=== PATIENT | female | born 1970 | race Caucasian/White ===

== ENCOUNTER 2020-06-14 17:56 | Inpatient (IN) | payer OTHER, SELFPAY ==
[~2020-06-14] VITALS: Ht 167.6 cm; Wt 85.7 kg
[2020-06-14] MEDS: NACL 0.9% 1,000 ML IV SCH
[2020-06-14 17:58] VITALS: BP 126/97
--- NOTE | 2020-06-14 18:18 | NUR ---
COVID-19 [facility]STA SWAB COLLECTED
--- NOTE | 2020-06-14 18:23 | NUR ---
WHEELCHAIR ASSISTED FROM [facility] C/O SOB, FATIGUE WITH GENERALIZED WEAKNESS X 1 WK----SYMPTOMS WORSENING 2 WORDED SPEECH BEFORE BEING OVERCOME BY COUGHING ---SHALLOW BREATH RAPID---
[2020-06-14] MEDS ORDERED: ACETAMINOPHEN EXTRA STRENGTH 500 MG TAB PO ONE (19:30)
--- NOTE | 2020-06-14 19:30 | NUR ---
RSV, FLU swab collected
[2020-06-14 19:36] LABS: BASOPHILS % (AUTO) 0.3 % (0.0-2.0); HEMATOCRIT 40.6 % (36-48); HEMOGLOBIN 13.9 g/dL (12.0-16.0); LYMPHOCYTES # (AUTO) 0.8 K/uL (2.5-16.5); LYMPHOCYTES % (AUTO) 15.6 % (20.5-51.1); MEAN CORPUSCULAR HEMOGLOBIN 32 pg (27-31); MEAN CORPUSCULAR HGB CONC 34 g/dL (33-37); MEAN CORPUSCULAR VOLUME 94.6 fL (80-94); MONOCYTES # (AUTO) 0.4 K/uL (0.8-1.0); MONOCYTES % (AUTO) 7.7 % (1.7-9.3); NEUTROPHILS # (AUTO) 4.1 K/uL (1.8-7.7); NEUTROPHILS % (AUTO) 76.4 % (42.2-75.2); PLATELET COUNT (AUTO) 123 K/uL (140-450); RED BLOOD CELL COUNT(AUTO) 4.29 MIL/uL (4.20-5.40); RED CELL DISTRIBUTION WIDTH 12.4 % (11.6-13.7); WHITE BLOOD COUNT (AUTO) 5.4 K/uL (4.8-10.8)
[2020-06-14 19:52] LABS: ALBUMIN 3.4 g/dL (3.4-5.0); ANION GAP 19.7 (8-16); CARBON DIOXIDE 19.6 mmol/L (21-32); CREATININE 0.8 mg/dL (0.6-1.3); POTASSIUM 4.3 mmol/L (3.5-5.1); TOTAL BILIRUBIN 0.6 mg/dL (0.0-1.0)
[2020-06-14 19:54] LABS: LACTATE DEHYDROGENASE 273 U/L (81-234)
[2020-06-14 19:59] LABS: PROTHROMBIN TIME 10.1 secs (10.8-13.4)
[2020-06-14 20:01] LABS: C-REACTIVE PROTEIN QUANT 13.4 mg/dL (0.0-0.9)
--- NOTE | 2020-06-14 20:06 | NUR ---
states unable to provide urine at the moment.
[2020-06-14 20:21] LABS: RSV NEGATIVE (NEGATIVE)
[2020-06-14] MEDS ORDERED: AZITHROMYCIN 500 MG in DEXTROSE 5% 250 ML IV ONE (21:15)
[2020-06-14] MEDS ORDERED: ACETAMINOPHEN 325 MG TAB PO PRN (21:30)
[2020-06-14] MEDS ORDERED: HYDROcodone/APAP 5/325 MG 1 TAB TAB PO PRN (21:30)
[2020-06-14] MEDS ORDERED: ONDANSETRON 4 MG/2 ML VIAL IVP PRN (21:30)
[2020-06-14] MEDS ORDERED: MORPHINE SULFATE 4 MG/ML SYR IVP PRN (21:30)
[2020-06-14] MEDS ORDERED: DEXTROSE 50% 50 ML SYR IVP PRN (21:40)
[2020-06-14] MEDS ORDERED: cefTRIAXone 1,000 MG VIAL ONE (21:46)
[2020-06-14] MEDS ORDERED: AZITHROMYCIN 500 MG INJ VIAL IV ONE (21:46)
[2020-06-14 23:08] LABS: APPEARANCE,URINE CLEAR (CLEAR); BILIRUBIN,URINE NEGATIVE (NEGATIVE); BLOOD, URINE NEGATIVE (NEGATIVE); COLOR,URINE YELLOW (YELLOW); LEUKOCYTE ESTERASE ,URINE NEGATIVE (NEGATIVE); NITRITE, URINE NEGATIVE (NEGATIVE); UGLUCOSE 3+ (NEGATIVE)
[2020-06-14 23:36] LABS: RBC,URINE 0-5 /HPF (0-5); WBC,URINE 0-5 /HPF (0-5)
[2020-06-14 23:40] VITALS: BP 120/78
--- NOTE | 2020-06-14 23:40 | NUR ---
RECEIVED PT AAOX4 , FROM ER / [facility]INE , WEAK LOOKING - WALK TO BED W/ ASSIST , W/ MILD SHORTNESS OF BREATH PT. DESCRIBING TO ME , SHE SAID HER SOB AGGRAVATES BY COUGH AND BY MOVING - ENCOURAGE THE PT TO BEDREST TO CONSERVE O2 AND ENERGY - WILL PROVIDE BEDSIDE COMMODE . IV SITE INTACT AND PATENT , ON TELE MONITOR - SR . O2 SAT 100 % . ADMISSION ASSESSMENT - DONE . MRSA SPECIMEN SENT TO LAB . SAFETY MEASURES IN PLACE - CALL LIGHT WITHIN REACH - REMINDS PT TO USE THE CALL LIGHT WHEN SHE NEEDED HELP . PLAN OF CARE DISCUSSED AND VERBALIZE UNDERSTANDING . WILL CONT. TO MONITOR . COVID 19 + - FULL CODE .
--- NOTE | 2020-06-14 23:45 | NUR ---
Patient will be admitted to care of . Admited to telemetry. Will go to room 113.. Belongings list completed. Report to Heidi GUERRA.
--- NOTE | 2020-06-15 02:00 | NUR ---
MADE ROUNDS , NO S/SX OF ACUTE DISTRESS NOTED AT THIS TIME , O2 SAT WNL . ON TELE MONITOR . CALL LIGHT WITHIN REACH .
--- NOTE | 2020-06-15 03:00 | NUR ---
VOIDED FREELY / THRU IMPROVISED COMMODE - U.O 800 CC . - CLEAR . Addendum: 06/15/20 at 0345 by Heidi Carpenter RN VOIDED FREELY TRHU IMPROVISED BEDSIDE COMMODE .
[2020-06-15 04:00] VITALS: BP 111/62
[2020-06-15 05:11] LABS: BASOPHILS % (AUTO) 0.5 % (0.0-2.0); EOSINOPHILS % (AUTO) 0.3 % (0.0-4.0); HEMATOCRIT 37.3 % (36-48); HEMOGLOBIN 12.6 g/dL (12.0-16.0); LYMPHOCYTES % (AUTO) 18.9 % (20.5-51.1); MEAN CORPUSCULAR HEMOGLOBIN 32 pg (27-31); MEAN CORPUSCULAR HGB CONC 34 g/dL (33-37); MEAN CORPUSCULAR VOLUME 96.1 fL (80-94); MONOCYTES # (AUTO) 0.5 K/uL (0.8-1.0); MONOCYTES % (AUTO) 8.9 % (1.7-9.3); NEUTROPHILS # (AUTO) 3.7 K/uL (1.8-7.7); NEUTROPHILS % (AUTO) 71.4 % (42.2-75.2); PLATELET COUNT (AUTO) 112 K/uL (140-450); RED BLOOD CELL COUNT(AUTO) 3.89 MIL/uL (4.20-5.40); RED CELL DISTRIBUTION WIDTH 12.5 % (11.6-13.7); WHITE BLOOD COUNT (AUTO) 5.2 K/uL (4.8-10.8)
[2020-06-15 05:57] LABS: ALBUMIN 2.7 g/dL (3.4-5.0); ANION GAP 14.1 (8-16); CARBON DIOXIDE 24.5 mmol/L (21-32); CREATININE 0.8 mg/dL (0.6-1.3); MAGNESIUM 1.9 mg/dL (1.8-2.4); POTASSIUM 4.6 mmol/L (3.5-5.1); TOTAL BILIRUBIN 0.3 mg/dL (0.0-1.0)
[2020-06-15] MEDS: BLOOD GLUCOSE MONITORING 1 DEV DEV FS SCH ×4 (06:17→21:09)
[2020-06-15] MEDS: INSULIN LISPRO SLIDING SCALE 100 UNITS/ML VIAL SUBQ PRN ×4 (06:17→21:11)
--- NOTE | 2020-06-15 07:15 | NUR ---
RECEIVED ENDORSEMENT FROM RHINOLOGIST NURSE, AWAKE. ALERT ORIENTEDX4, BREATHING SPONTANEOUSLY WITH O2 AT 4L/MIN VIA NC SATURATING AT 95%, NOT IN DISTRESS NOTED. WITH ONGOING IV FLUID 0.9% NS AT 80ML/H INFUSING WELL AT RT HAND G22 IV CANNULA NOTED.SAFETY MEASURES IN PLACE AND CONTINUE MONITOR.
--- NOTE | 2020-06-15 07:15 | NUR ---
ENDORSED - PT - STABLE .
[2020-06-15 08:00] VITALS: BP 134/71
[2020-06-15] MEDS: DEXAMETHASONE 4 MG/ML VIAL IVP SCH (08:26)
--- NOTE | 2020-06-15 08:33 | NUR ---
FULLY AWAKE, MILD SHORTNESS OF BREATHE NOTED,PLACE ON UPRIGHT POSITION, VERBALIZED COMFORTABLE.DUE MEDICATION GIVEN.
--- NOTE | 2020-06-15 09:28 | NUR ---
PATIENT HAS BEEN SCREENED AND CATEGORIZED MODERATE NUTRITION RISK. PATIENT WILL BE SEEN WITHIN 3-5 DAYS OF ADMISSION. 06/17/20 06/19/[address]
[2020-06-15] MEDS ORDERED: ALBUTEROL HFA MDI 90 MCG/ACTUATION 8 GM INH PRN (09:45)
[2020-06-15] MEDS ORDERED: LOVENOX 1MG/KG Q12H SUBQ SCH (09:45)
[2020-06-15] MEDS ORDERED: ENOXAPARIN 80 MG/0.8 ML SYR SUBQ SCH (10:00)
[2020-06-15] MEDS: NACL 0.9% 1,000 ML IV SCH ×3 (10:35→22:27)
--- NOTE | 2020-06-15 10:43 | NUR ---
FEBRILE- 100.8, TYLENOL 650MG TAB Q4H ORDERED PRN GIVEN.
--- NOTE | 2020-06-15 11:37 | NUR ---
VACUUM FILTER OPERATOR NOTE: KARINA WAS UNABLE TO MEET PATIENT AT BEDSIDE. KARINA CONTACTED PATIENT'S CARLA BOONE [phone]. KARINA WILL ATTEMPT TO CONTACT PATIENT WITH ROOM PHONE. Addendum: 06/15/20 at 1415 by Garcia Strange SS KARINA CONTACTED CHARLIE GONZALEZ REGARDING IF PATIENT'S ROOM PHONE IS WORKING. PER LISA, ROOM PHONE IS WORKING. KARINA CONTACTED ROOM PHONE 3X TO COMPLETE ASSESSMENT. KARINA WILL FOLLOW UP.
[2020-06-15 12:00] VITALS: BP 117/65
--- NOTE | 2020-06-15 12:09 | NUR ---
VITAL SIGNS TAKEN AND RECORDED, STILL MILD TACHYPNEIC NOTED BUT NOT IN DISTRESS. KEPT ON HIGH BACK REST POSITION AND COMFORTABLE TO BED.
--- NOTE | 2020-06-15 14:06 | NUR ---
AWAKE AND ALERT, WATCHING TV, NOT IN DISTRESS NOTED
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
[2020-06-15 16:00] VITALS: BP 145/90
[2020-06-15] MEDS ORDERED: remdesivir COMMUNICATION ORDER 1 EA MISC MC PRN (17:00)
--- NOTE | 2020-06-15 17:06 | NUR ---
DR. FERRELL CALLED AND UPDATED PATIENT STATUS, HE ORDERED FOR 1 UNIT CONVALESCENT PLASMA AND CARRIED OUT.
[2020-06-15] MEDS ORDERED: CLINICAL MONITORING MC PRN (17:15)
[2020-06-15] MEDS ORDERED: REMDESIVIR (EUA) 200 MG in NACL 0.9% 100 ML IV SCH (18:00)
--- NOTE | 2020-06-15 18:33 | NUR ---
CONSENT SIGNED FOR BLOOD TRANSFUSION INTERPRETED BY INTERCOM, VERBALIZED UNDERSTANDING. INITIAL DOSE DOSE OF REMDISEVER GIVEN. SAFETY MEASURES IN PLACE.
--- NOTE | 2020-06-15 19:18 | NUR ---
ENDORSED TO TRIAL MANAGER NURSE FOR CONTINUITY OF CARE IN STABLE CONDITION
--- NOTE | 2020-06-15 19:20 | NUR ---
RECEIVED BEDSIDE SHIFT REPORT FROM DAY SHIFT NURSE. PT AAO4, AMBULATORY, AND ABLE TO MAKE NEEDS KNOWN. PT ON O2 3LPM/NC. PT NOT IN DISTRESS. SKIN IS WARM, DRY, AND INTACT. ABDOMEN IS SOFT AND NON-TENDER. IV ACCESS ON RIGHT HAND G22 PATENT AND INTACT, IVF INFUSING WELL. PT DENIES ANY PAIN OR DISCOMFORT AT THIS TIME. NO REQUESTS MADE. POC DISCUSSED, PT VERBALIZED UNDERSTANDING. SAFETY MEASURES IN PLACE. CALL LIGHT WITHIN REACH. WILL CONTINUE TO MONITOR.
[2020-06-15 20:00] VITALS: BP 118/69
[2020-06-15] MEDS: ZINC SULF 220 MG CAP PO SCH (20:56)
--- NOTE | 2020-06-15 20:58 | NUR ---
VITAL SIGNS STABLE. SCHEDULED MEDS GIVEN ORDERED. BLOOD SUGAR 283. INSULIN COVERAGE GIVEN PER ORDERS. PT NOT IN DISTRESS. O2 IN PLACE. HOB ELEVATED. PT DENIES ANY PAIN OR DISCOMFORT AT THIS TIME. SAFETY MEASURES IN PLACE. CALL LIGHT WITHIN REACH. WILL CONTINUE TO MONITOR.
[2020-06-15] MEDS: ENOXAPARIN 80 MG/0.8 ML SYR SUBQ SCH (21:10)
[2020-06-15] MEDS ORDERED: AZITHROMYCIN 500 MG in DEXTROSE 5% 250 ML IV SCH (22:00)
--- NOTE | 2020-06-15 22:29 | NUR ---
PT IN BED WATCHING TV. NO S/SX OF DISTRESS NOTED. O2 IN PLACE. PT KEPT COMFORTABLE. CALL LIGHT WITHIN REACH. WILL CONTINUE TO MONITOR.
[2020-06-16] VITALS: BP 122/75
--- NOTE | 2020-06-16 00:10 | NUR ---
VITAL SIGNS STABLE. PT NOT IN DISTRESS. O2 IN PLACE. PT DENIES ANY PAIN OR DISCOMFORT. PT KEPT COMFORTABLE. SAFETY MEASURES IN PLACE. CALL LIGHT WITHIN REACH. WILL CONTINUE TO MONITOR.
--- NOTE | 2020-06-16 01:55 | NUR ---
ROUNDS MADE. PT ASLEEP. O2 IN PLACE. VISIBLE CHEST RISE AND FALL NOTED. PT KEPT COMFORTABLE. SAFETY MEASURES IN PLACE. CALL LIGHT WITHIN REACH. WILL CONTINUE TO MONITOR.
[2020-06-16 04:00] VITALS: BP 133/74
--- NOTE | 2020-06-16 04:35 | NUR ---
VITAL SIGNS STABLE. PT IN BED RESTING. O2 IN PLACE. PT NOT IN DISTRESS. O2 SAT 96%. PT DENIES ANY PAIN OR DISCOMFORT. NO REQUESTS MADE. PT KEPT COMFORTABLE. SAFETY MEASURES IN PLACE. CALL LIGHT WITHIN REACH. WILL CONTINUE TO MONITOR.
[2020-06-16] MEDS: BLOOD GLUCOSE MONITORING 1 DEV DEV FS SCH ×4 (06:57→21:10)
[2020-06-16 06:58] LABS: BASOPHILS % (AUTO) 0.1 % (0.0-2.0); HEMATOCRIT 39.2 % (36-48); HEMOGLOBIN 13.3 g/dL (12.0-16.0); LYMPHOCYTES # (AUTO) 0.7 K/uL (2.5-16.5); LYMPHOCYTES % (AUTO) 8.1 % (20.5-51.1); MEAN CORPUSCULAR HEMOGLOBIN 32 pg (27-31); MEAN CORPUSCULAR HGB CONC 34 g/dL (33-37); MEAN CORPUSCULAR VOLUME 95.2 fL (80-94); MONOCYTES # (AUTO) 0.6 K/uL (0.8-1.0); MONOCYTES % (AUTO) 6.3 % (1.7-9.3); NEUTROPHILS # (AUTO) 7.9 K/uL (1.8-7.7); NEUTROPHILS % (AUTO) 85.5 % (42.2-75.2); PLATELET COUNT (AUTO) 153 K/uL (140-450); RED BLOOD CELL COUNT(AUTO) 4.12 MIL/uL (4.20-5.40); RED CELL DISTRIBUTION WIDTH 12.4 % (11.6-13.7); WHITE BLOOD COUNT (AUTO) 9.2 K/uL (4.8-10.8)
[2020-06-16] MEDS: INSULIN LISPRO SLIDING SCALE 100 UNITS/ML VIAL SUBQ PRN ×4 (06:58→21:11)
[2020-06-16 07:03] LABS: ALBUMIN 2.9 g/dL (3.4-5.0); ANION GAP 19.4 (8-16); CARBON DIOXIDE 20.2 mmol/L (21-32); CREATININE 0.8 mg/dL (0.6-1.3); POTASSIUM 4.6 mmol/L (3.5-5.1); TOTAL BILIRUBIN 0.4 mg/dL (0.0-1.0)
--- NOTE | 2020-06-16 07:16 | NUR ---
GAVE BEDSIDE SHIFT REPORT TO DAY SHIFT NURSE. PATIENT IN STABLE CONDITION.
--- NOTE | 2020-06-16 07:18 | NUR ---
RECEIVED REPORT FROM NIGHT NURSE PT IS AAOX4 ON OXYGEN 3L VIA NASAL CANULA ON CCHO 60 MG DIET, IV SITES INTACT AND PATENT ON LEFT HAND G22. LAST BLOOD SUGAR LEVEL AT 206MG/DL. SAFETY MEASURES IN PLACE CALL LIGHT WITHIN REACH. WILL CONTINUE TO MONITOR.
[2020-06-16 08:00] VITALS: BP 123/68
[2020-06-16] MEDS: DEXAMETHASONE 4 MG/ML VIAL IVP SCH (09:08)
[2020-06-16] MEDS: ASCORBIC ACID 500 MG TAB PO SCH (09:08)
[2020-06-16] MEDS: ZINC SULF 220 MG CAP PO SCH ×2 (09:09→21:10)
[2020-06-16] MEDS: ENOXAPARIN 80 MG/0.8 ML SYR SUBQ SCH ×2 (09:11→21:10)
--- NOTE | 2020-06-16 09:15 | NUR ---
MEDICATIONS DUE GIVEN AND CHECK VITAL SIGNS PRIOR TO MEDICATIONS BP 123/68 WV 73. PATIENT COMPLAINS OF COUGHING AND WEAKNESS EVERY TIME SHE GOES TO THE BATHROOM AND SHORTNESS OF BREATH. UNABLE TO SLEEP WELL AND EAT WELL. SAFETY MEASURES IN PLACE CALL LIGHT WITHIN REACH. WILL CONTINUE TO MONITOR.
--- NOTE | 2020-06-16 10:35 | NUR ---
IV FLUIDS DISCONTINUED AT THIS TIME PER MD ORDER.
--- NOTE | 2020-06-16 10:47 | NUR ---
BLADE OPERATOR NOTE: Patient's Orientation Unable To Assess Information Provided By BEATRICE BOONE - NATALIYA Comments SW CONTACTED GEO BOONE USING HOUSE PHONE NUMBER [phone]. BEATRICE BOONE PROVIDED AN ALTERNATE EMERGENCY CONTACT, DUE TO FACE SHEET HAVING INCORRECT PHONE NUMBER. Grade Checker, Realtionship and Phone Number BEATRICE AN [phone] Healthcare Power of Boom Operator No Does Patient Have a POLST No Identifying Problems No Social Work Triggers Is A Social Work Consult Needed No Mandate Report Filed No Explanation Of Identifying Problems PATIENT IS A 49-YEAR-OLD FEMALE ADMITTED FOR COVID. PATIENT HAS PMHX OF DIABETES. Admitted From Home Pre-Admission Level Of Functioning Status Independent/Ambulatory Prior Resources/Services Used In Last 12 Months No Prior Resources Used Prior DME No Prior DME Used Living Situation Lives With Family House Patient Had Caregiver No Home Support No Caregiver Issues Financial Issues No Known Financial Issue Referral To The Financial Counselor Needed No Factors/Needs No D/C Needs Identified Pt/Rep Participated In Discharge Plan Yes Patient/Family Agress With Discharge Plan Yes Discharge Plan Comments TENTATIVE DISCHARGE PLAN IS FOR PATIENT TO RETURN HOME. DC Plan Status Initiated
--- NOTE | 2020-06-16 11:36 | NUR ---
BLOOD SUGAR MONITORING CHECKED 259MG/DL GAVE 6 UNITS INSULIN. PATIENT IS SITTING AND COMPLAINING OF COUGH. CHANGED PT GOWN AND SAFETY MEASURES IN PLACE, CALL LIGHT WITHIN REACH. WILL CONTINUE TO MONITOR.
[2020-06-16 12:00] VITALS: BP 116/72
--- NOTE | 2020-06-16 13:00 | NUR ---
DR KNOTT ORDERED ROBITUSSIN 5M Q4H PRN FOR PATIENT'S COUGH.
[2020-06-16] MEDS: guaiFENesin DM 200/20 MG-10 ML 10 ML UDC PO PRN ×2 (13:24→17:51)
--- NOTE | 2020-06-16 13:27 | NUR ---
MADE ROUND AT THIS TIME PATIENT IS LYING IN BED AND GAVE ROBITUSSIN FOR HER COUGH. PATIENT IS STILL WEAK AND UNABLE TO FINISH HER FOOD. PT IS STABLE. SAFETY MEASURES IN PLACE AND CALL LIGHT WITHIN REACH. WILL CONTINUE TO MONITOR.
[2020-06-16 16:00] VITALS: BP 117/60
--- NOTE | 2020-06-16 16:30 | NUR ---
BLOOD GLUCOSE MONITORING DONE AT THIS TIME BLOOD SUGAR AT 274MG/DL INSULIN GIVEN AT 6 UNITS. PT IS STABLE.
[2020-06-16] MEDS: REMDESIVIR (EUA) 100 MG in NACL 0.9% 100 ML IV SCH (17:46)
--- NOTE | 2020-06-16 17:55 | NUR ---
COUGH MEDICATION GIVEN AT THIS TIME AND REMDESIVER IVF GIVEN. PT IS STABLE.
--- NOTE | 2020-06-16 19:10 | NUR ---
ENDORSED TO NIGHT NURSE FOR CONTINUITY OF CARE. PT IS STABLE.
--- NOTE | 2020-06-16 19:30 | NUR ---
RECEIVED REPORT FROM AM NURSE. PATIENT IS IN STABLE CONDITION. EVEN AND UNLABORED RESPIRATIONS, ON 3LNC, SATURATING AT 90%. TELUGU SPEAKING BUT IS ABLE TO MAKE NEEDS KNOW. SKIN AND WARM AND INTACT. DISCUSSED POC OF CARE WITH PT. SAFETY PRECAUTIONS IN PLACE. CALL LIGHT WITHIN REACH. WILL CONTINUE TO MONITOR.
[2020-06-16 20:00] VITALS: BP 121/61
--- NOTE | 2020-06-16 20:30 | NUR ---
CHECKED ON PATIENT AND FOUND PATIENT SITTING ON THE EDGE OF THE BED WITH DEEP RESPIRATION. CALLED RT TO BEDSIDE TO ASSESSED. PROVIDED BEDSIDE COMMODE AND EDUCATION WAS GIVEN. WILL CONTINUE TO MONITOR.
--- NOTE | 2020-06-16 21:03 | NUR ---
PT FOUND ON 4LNC AND TITRATED/CHANGED TO 5L OXY PT SPO2 92% HR 73 f 26 PT APPEARS RESTLESS/ANXIOUS RN BROUGHT COMMODE TO BEDSIDE WILL CONTINUE TO MONITOR
--- NOTE | 2020-06-16 21:15 | NUR ---
ADMINISTERED SCHEDULED MEDS. EDUCATION GIVEN. PATIENT IN STABLE CONDITION. WILL CONTINUE TO MONITOR. Addendum: 06/17/20 at 0432 by Janes Kwan RN RT AT BEDSIDE AND TITRATED 02 TO 5L ON OXYMIZER. PT REMAINS IN STABLE CONDITION.
--- NOTE | 2020-06-16 23:06 | NUR ---
PT IS RESTING IN BED. PATIENT IN STABLE CONDITION. WILL CONTINUE TO MONITOR.
[2020-06-17] VITALS: BP 142/67
--- NOTE | 2020-06-17 00:25 | NUR ---
PLASMA INFUSION STARTED AT THIS TIME. VITALS ARE WITHIN NORMAL LIMITS. WILL CONTINUE TO MONITOR.
--- NOTE | 2020-06-17 02:40 | NUR ---
PLASMA INFUSION COMPLETE. NO REACTION NOTED. PT IS IN STABLE CONDITION WITH NORMAL LIMIT VITALS. WILL CONTINUE TO MONITOR.
[2020-06-17 04:00] VITALS: BP 120/60
--- NOTE | 2020-06-17 05:00 | NUR ---
PT IS SLEEPING. VISIBLE CHEST RISE NOTED. WILL CONTINUE TO MONITOR.
[2020-06-17 06:28] LABS: BASOPHILS % (AUTO) 0.1 % (0.0-2.0); HEMATOCRIT 37.7 % (36-48); LYMPHOCYTES # (AUTO) 0.7 K/uL (2.5-16.5); LYMPHOCYTES % (AUTO) 9.2 % (20.5-51.1); MEAN CORPUSCULAR HEMOGLOBIN 33 pg (27-31); MEAN CORPUSCULAR HGB CONC 35 g/dL (33-37); MEAN CORPUSCULAR VOLUME 94.2 fL (80-94); MONOCYTES # (AUTO) 0.7 K/uL (0.8-1.0); MONOCYTES % (AUTO) 8.8 % (1.7-9.3); NEUTROPHILS # (AUTO) 6.3 K/uL (1.8-7.7); NEUTROPHILS % (AUTO) 81.9 % (42.2-75.2); PLATELET COUNT (AUTO) 184 K/uL (140-450); RED CELL DISTRIBUTION WIDTH 12.7 % (11.6-13.7); WHITE BLOOD COUNT (AUTO) 7.7 K/uL (4.8-10.8)
[2020-06-17] MEDS: BLOOD GLUCOSE MONITORING 1 DEV DEV FS SCH ×4 (06:44→21:00)
[2020-06-17] MEDS: INSULIN LISPRO SLIDING SCALE 100 UNITS/ML VIAL SUBQ PRN ×4 (06:45→22:03)
[2020-06-17 06:56] LABS: ALBUMIN 2.8 g/dL (3.4-5.0); ANION GAP 17.5 (8-16); CARBON DIOXIDE 21.6 mmol/L (21-32); CREATININE 0.7 mg/dL (0.6-1.3); POTASSIUM 4.1 mmol/L (3.5-5.1); TOTAL BILIRUBIN 0.4 mg/dL (0.0-1.0)
--- NOTE | 2020-06-17 07:15 | NUR ---
RECEIVED REPORT FROM NIGHT NURSE FOR CONTINUITY OF CARE, PT IS STABLE, PT ON 5L OXIMIZER OXYGEN, NO SIGNS OF DISTRESS NOTED, PT IS ASLEEP BUT AWOKE WHEN DOOR OPENED, INTRODUCE SELF, WILL UPDATE WHITEBOARD, PT HAS RH 22G SALINE LOCK, BED IN LOW POSITION, SAFETY MEASURES IN PLACE, SKIN INTACT, CALL LIGHT WITHIN REACH, WILL CONTINUE TO MONITOR.
--- NOTE | 2020-06-17 07:33 | NUR ---
ENDORSED CARE TO AM NURSE. PATIENT IS IN STABLE CONDITION.
[2020-06-17 08:00] VITALS: BP 126/66
[2020-06-17] MEDS: ENOXAPARIN 80 MG/0.8 ML SYR SUBQ SCH ×2 (08:07→22:04)
[2020-06-17] MEDS: ASCORBIC ACID 500 MG TAB PO SCH (08:09)
[2020-06-17] MEDS: ZINC SULF 220 MG CAP PO SCH ×2 (08:09→21:49)
[2020-06-17] MEDS: DEXAMETHASONE 4 MG/ML VIAL IVP SCH (08:10)
--- NOTE | 2020-06-17 08:19 | NUR ---
ADMINISTERED SCHEDULED MEDICATION, MEDICATION EDUCATION GIVEN, PT VERBALIZED UNDERSTANDING IN KOREAN, PT TOLERATED WELL, PT IS STABLE, PT O2 SATS AT 96, CALL LIGHT WITHIN REACH, WILL CONTINUE TO MONITOR.
--- NOTE | 2020-06-17 08:40 | NUR ---
INFORMED DR KNOTT, PT HEART RATE GOES DOWN TO 44 WHEN SHE IS RESTING, PT ALSO FEEL ANXIOUS AND ASK FOR SOME PRN MEDICATION FOR ANXIETY, DR KNOTT IS AWARE OF PT'S SINUS EVON AND TO CONTINUE TO MONITOR, DR. KNOTT WILL INPUT ORDERS FOR MEDICATION.
--- NOTE | 2020-06-17 11:30 | NUR ---
PT BLOOD GLUCOSE 311, PT WILL RECEIVED COVERAGE
[2020-06-17 12:00] VITALS: BP 126/65
[2020-06-17] MEDS ORDERED: LORazepam 0.5 MG TAB PO PRN (12:00)
--- NOTE | 2020-06-17 12:41 | NUR ---
ADMINISTERED 8 UNITS OF HUMALOG FOR BLOOD GLUCOSE OF 311, MEDICATION EDUCATION GIVEN, PT VERBALIZED UNDERSTANDING, PT TOLERATED WELL, PT IS STABLE, CALL LIGHT WITHIN REACH.
--- NOTE | 2020-06-17 15:00 | NUR ---
PT RESTING IN BED, NO SIGNS OF DISTRESS NOTED, CALL LIGHT WITHIN REACH, WILL CONTINUE TO MONITOR.
[2020-06-17 16:00] VITALS: BP 120/65
[2020-06-17] MEDS: REMDESIVIR (EUA) 100 MG in NACL 0.9% 100 ML IV SCH (17:15)
--- NOTE | 2020-06-17 17:21 | NUR ---
ADMINISTERED SCHEDULED MEDICATION, 4 UNITS OF HUMALOG FOR BLOOD GLUCOSE OF 246, MEDICATION EDUCATION GIVEN, PT VERBALIZED UNDERSTANDING, PT TOLERATED WELL, PT IS STABLE, CALL LIGHT WITHIN REACH.
--- NOTE | 2020-06-17 19:05 | NUR ---
ENDORSE PT TO NIGHT NURSE FOR CONTINUITY OF CARE, PT IS STABLE
--- NOTE | 2020-06-17 19:25 | NUR ---
RECEIVED REPORT FROM AM NURSE. PATIENT IS RESTING IN BED. RESPIRATIONS EVEN AND UNLABORED. 5L [address], SATURATING AT 96%. PATIENT IS A/OX4, ESTONIAN SPEAKING BUT IS ABLE TO MAKE NEEDS KNOWN. SKIN IS DRY, WARM, IN TACT. IV 22G ON RIGHT HAND, PATENT, ASYMPTOMATIC, INTACT, INFUSING NS 10ML/HR. PATIENT IS STABLE AT THIS TIME. ALL STAFF TO OBSERVE ISOLATION PRECAUTIONS. SAFETY MEASURES IN PLACE. CALL LIGHT WITHIN REACH. WILL CONTINUE TO MONITOR.
[2020-06-17 20:00] VITALS: BP 128/64
--- NOTE | 2020-06-17 21:15 | NUR ---
ADMINISTERED SCHEDULED MEDICATION. EDUCATION WAS GIVEN. PATIENT TOLERATED WELL. MT REPORTED THAT PATIENT HAS A HR OF 42. PATIENT WAS ASSESS AND ASYMPTOMATIC AND STABLE. WILL CONTINUE TO MONITOR.
--- NOTE | 2020-06-17 23:20 | NUR ---
PATIENT IS SLEEPING IN BED. NO SIGNS OF DISTRESS AT THIS TIME. WILL CONTINUE TO MONITOR.
[2020-06-18] VITALS: BP 125/64
--- NOTE | 2020-06-18 00:55 | NUR ---
PATIENT IS SLEEPING. RT AT BEDSIDE TO CHECK ON PATIENT. PATIENT IS IN STABLE CONDITION. WILL CONTINUE TO MONITOR.
--- NOTE | 2020-06-18 03:27 | NUR ---
PT IS SLEEPING. NO SIGNS OF DISTRESS AT THIS TIME. WILL CONTINUE TO MONITOR.
[2020-06-18 04:00] VITALS: BP 122/66
--- NOTE | 2020-06-18 04:01 | NUR ---
FOUND PATIENT SATURATING AT 99% ON 5L 02 VIA OXYMIZER. TITRATED 02 DOWN TO 3L VIA OXYMIZER AND PATIENT IS STILL SATURATING AT 99% AND TOLERATING WELL. WILL CONTINUE TO MONITOR.
--- NOTE | 2020-06-18 05:20 | NUR ---
PATIENT IS SLEEPING. NO SIGNS OF DISTRESS NOTED. WILL CONTINUE TO MONITOR.
[2020-06-18 06:17] LABS: BASOPHILS % (AUTO) 0.1 % (0.0-2.0); HEMOGLOBIN 13.2 g/dL (12.0-16.0); LYMPHOCYTES # (AUTO) 0.5 K/uL (2.5-16.5); LYMPHOCYTES % (AUTO) 8.9 % (20.5-51.1); MEAN CORPUSCULAR HEMOGLOBIN 32 pg (27-31); MEAN CORPUSCULAR HGB CONC 35 g/dL (33-37); MEAN CORPUSCULAR VOLUME 93.7 fL (80-94); MONOCYTES # (AUTO) 0.6 K/uL (0.8-1.0); MONOCYTES % (AUTO) 11.5 % (1.7-9.3); NEUTROPHILS # (AUTO) 4.3 K/uL (1.8-7.7); NEUTROPHILS % (AUTO) 79.5 % (42.2-75.2); PLATELET COUNT (AUTO) 201 K/uL (140-450); RED BLOOD CELL COUNT(AUTO) 4.06 MIL/uL (4.20-5.40); RED CELL DISTRIBUTION WIDTH 12.5 % (11.6-13.7); WHITE BLOOD COUNT (AUTO) 5.4 K/uL (4.8-10.8)
[2020-06-18 06:48] LABS: ALBUMIN 2.8 g/dL (3.4-5.0); ANION GAP 15.3 (8-16); CARBON DIOXIDE 22.6 mmol/L (21-32); CREATININE 0.7 mg/dL (0.6-1.3); POTASSIUM 3.9 mmol/L (3.5-5.1); TOTAL BILIRUBIN 0.3 mg/dL (0.0-1.0)
[2020-06-18] MEDS: BLOOD GLUCOSE MONITORING 1 DEV DEV FS SCH ×4 (06:54→20:42)
[2020-06-18] MEDS: INSULIN LISPRO SLIDING SCALE 100 UNITS/ML VIAL SUBQ PRN ×4 (06:55→20:43)
--- NOTE | 2020-06-18 07:09 | NUR ---
ENDORSED TO AM NURSE. PT IS IN STABLE CONDITION.
--- NOTE | 2020-06-18 07:10 | NUR ---
RECEIVED PATIENT FROM NIGHT NURSE. PATIENT IS AWAKE, ALERT, ORIENTED X4. RESP EVEN AND UNLABORED ON 3L OXIMIZER. DENIES OF PAIN OR DISTRESS AT THIS TIME. DROPLET PRECAUTION OBSERVED. PLAN OF CARE DISCUSSED WITH PATIENT. PATIENT VERBALIZED UNDERSTANDING. SAFETY MEASURES IN PLACE. WILL CONTINUE TO MONITOR.
[2020-06-18 08:00] VITALS: BP 130/55
[2020-06-18] MEDS: ENOXAPARIN 80 MG/0.8 ML SYR SUBQ SCH ×2 (09:43→20:43)
[2020-06-18] MEDS: DEXAMETHASONE 4 MG/ML VIAL IVP SCH (09:47)
[2020-06-18] MEDS: ASCORBIC ACID 500 MG TAB PO SCH (09:47)
[2020-06-18] MEDS: ZINC SULF 220 MG CAP PO SCH ×2 (09:47→20:35)
--- NOTE | 2020-06-18 10:03 | NUR ---
MORNING ROUTINE MEDICATIONS GIVEN. PATIENT TOLERATED WELL. RESP EVEN AND UNLABORED ON 3L OXIMIZER. DENIES OF PAIN OR DISTRESS AT THIS TIME. IV ACCESS OF LEFT HAND IS PATENT AND INTACT. CALL LIGHT WITHIN REACH. WILL CONTINUE TO MONITOR.
--- NOTE | 2020-06-18 11:05 | NUR ---
TOLERATED INCENTIVE SPIROMETRY THERAPY WELL WITHOUT ADVERSE REACTIONS NOTED ENCOURAGED PATIENT WITH ACKNOWLEDGEMENT TO USE INCENTIVE SPIROMETRY EVERY 2 HOURS X 10 BREATHS WHILE AWAKE
[2020-06-18 12:00] VITALS: BP 133/62
--- NOTE | 2020-06-18 13:05 | NUR ---
BLOOD GLUCOSE 296. INSULIN COVERAGE PROVIDED PER SLIDING SCALE. PATIENT IS IN BED EATING HER LUNCH. RESP EVEN AND UNLABORED ON 3L OXIMIZER. I/S AT BEDSIDE AND ENCOURAGED TO USE HOURLY. PATIENT DENIES OF PAIN OR DISTRESS AT THIS TIME. CALL LIGHT WITHIN REACH. WILL CONTINUE TO MONITOR.
--- NOTE | 2020-06-18 15:03 | NUR ---
(AMBULATION WALK [id number]) SATURATION 97% ON SUPPLEMENTAL OXYGEN AT 2 LPM VIA OXYMIZER REMOVED SUPPLEMENTAL OXYGEN FRO PATIENT PLACED PORTABLE PULSE OXIMETER AT [facility] AMBULATED PATIENT FOR 5 MINUTES ONLY PATIENT PRESENTING DESCENDING SATURATION TO 87% TACHYPNEIC RESPIRATORY RATE +36 RETURNED PATIENT TO BED PLACED PATIENT BACK ON SUPPLEMENTAL OXYGEN AT 2 LPM VIA OXYMIZER WITH SATURATION ASCENDING TO 95% Addendum: 06/18/20 at 1524 by Cristobal Guerrier RT FRO = FROM
--- NOTE | 2020-06-18 15:51 | NUR ---
06/18/20 RD INITIAL ASSESSMENT COMPLETED PLEASE REFER TO NUTRITION ASSESSMENT UNDER CARE ACTIVITY FOR ESTIMATED NUTRITIONAL NEEDS. 1. CONTINUE CCHO 60GM DIET TOLERATED 2. CONTINUE WITH GLUCERNA BID 3. ENCOURAGED TO INCREASE PO INTAKE 4. RD TO FOLLOW-UP 2-3 DAYS, HIGH RISK [address], RD
--- NOTE | 2020-06-18 15:56 | NUR ---
PATIENT RESTING COMFORTABLY IN BED. RESP EVEN AND UNLABORED ON 3L OXYMIZER. DENIES OF PAIN AT THIS TIME. NO NOTED DISTRESS. CALL LIGHT WITHIN REACH. WILL CONTINUE TO MONITOR.
[2020-06-18 16:00] VITALS: BP 148/70
--- NOTE | 2020-06-18 17:25 | NUR ---
BLOOD SUGAR 310. INSULIN GIVEN PER SLIDING SCALE. PATIENT SITTING UP IN BED WATCHING TV. NO NOTED DISTRESS. RESP EVEN AND UNLABORED ON 3L OXYMIZER. CALL LIGHT WITHIN REACH. WILL CONTINUE TO MONITOR.
[2020-06-18] MEDS: REMDESIVIR (EUA) 100 MG in NACL 0.9% 100 ML IV SCH (17:46)
--- NOTE | 2020-06-18 19:20 | NUR ---
ENDORSED PATIENT TO NIGHT NURSE. PATIENT IN STABLE CONDITION,.
--- NOTE | 2020-06-18 19:23 | NUR ---
RECEIVED BEDSIDE REPORT FROM CARLOS ONEILL SHIFT NURSE. PATIENT IS AWAKE RESPIRATION EVEN UNLABORED ON 2L NC O2. NO DISTRESS NOTED. SKIN IS WARM AND DRY. IV PATENT AND INTACT. ALL SAFETY MEASURES IN PLACE. BED IS AT LOW POSITION. CALL LIGHT WITHIN REACH. WILL CONTINUE TO MONITOR.
[2020-06-18 20:00] VITALS: BP 119/69
--- NOTE | 2020-06-18 20:42 | NUR ---
ALL SCHEDULED MEDS WERE GIVEN PER ORDER. NO ASE NOTED. WILL CONTINUE TO MONITOR
--- NOTE | 2020-06-18 22:39 | NUR ---
CHECKED PATIENT. PATIENT AWAKE, WATCHING TV. RESPIRATION EVEN UNLABORED ON 3L OXYMIZER O2. NO DISTRESS NOTED. WILL CONTINUE TO MONITOR
[2020-06-19] VITALS: BP 140/80
--- NOTE | 2020-06-19 | NUR ---
VITALS WERE TAKEN. PATIENT IN STABLE CONDITION. NO DISTRESS NOTED. WILL CONTINUE TO MONITOR.
--- NOTE | 2020-06-19 02:00 | NUR ---
CHECKED PATIENT. PATIENT SLEEPING RESPIRATION EVEN UNLABORED ON 3L OXYMIZER. NO DISTRESS NOTED. WILL CONTINUE TO MONITOR.
[2020-06-19 04:00] VITALS: BP 127/74
--- NOTE | 2020-06-19 04:12 | NUR ---
PATIENT HR WENT DOWN TO 38 PER BOARD FILLER REPORT. CHECKED PATIENT. PATIENT SLEEPING. AWAKEN BY NAME AND TOUCH. HR WENT UP TO 60. WILL CONTINUE TO MONITOR.
[2020-06-19 04:54] LABS: BASOPHILS % (AUTO) 0.3 % (0.0-2.0); HEMOGLOBIN 12.9 g/dL (12.0-16.0); LYMPHOCYTES # (AUTO) 0.8 K/uL (2.5-16.5); MEAN CORPUSCULAR HEMOGLOBIN 32 pg (27-31); MEAN CORPUSCULAR HGB CONC 35 g/dL (33-37); MEAN CORPUSCULAR VOLUME 92.9 fL (80-94); MONOCYTES # (AUTO) 0.6 K/uL (0.8-1.0); MONOCYTES % (AUTO) 13.4 % (1.7-9.3); NEUTROPHILS # (AUTO) 3.1 K/uL (1.8-7.7); NEUTROPHILS % (AUTO) 69.3 % (42.2-75.2); PLATELET COUNT (AUTO) 211 K/uL (140-450); RED BLOOD CELL COUNT(AUTO) 3.98 MIL/uL (4.20-5.40); RED CELL DISTRIBUTION WIDTH 12.6 % (11.6-13.7); WHITE BLOOD COUNT (AUTO) 4.5 K/uL (4.8-10.8)
[2020-06-19 05:57] LABS: ALBUMIN 2.8 g/dL (3.4-5.0); ANION GAP 14.3 (8-16); CARBON DIOXIDE 23.6 mmol/L (21-32); CREATININE 0.6 mg/dL (0.6-1.3); POTASSIUM 3.9 mmol/L (3.5-5.1); TOTAL BILIRUBIN 0.4 mg/dL (0.0-1.0)
[2020-06-19] MEDS: INSULIN LISPRO SLIDING SCALE 100 UNITS/ML VIAL SUBQ PRN ×3 (06:28→17:13)
[2020-06-19] MEDS: BLOOD GLUCOSE MONITORING 1 DEV DEV FS SCH ×3 (06:34→17:06)
--- NOTE | 2020-06-19 07:07 | NUR ---
ENDORSED PATIENT TO DAY SHIFT NURSE FOR CONTINUITY OF CARE
[2020-06-19 08:22] VITALS: BP 134/77
[2020-06-19] MEDS: ASCORBIC ACID 500 MG TAB PO SCH (08:24)
[2020-06-19] MEDS: ZINC SULF 220 MG CAP PO SCH (08:24)
[2020-06-19] MEDS: DEXAMETHASONE 4 MG/ML VIAL IVP SCH (08:25)
[2020-06-19] MEDS: ENOXAPARIN 80 MG/0.8 ML SYR SUBQ SCH (08:32)
[2020-06-19] MEDS ORDERED: DEC4 PO (09:35)
[2020-06-19] MEDS ORDERED: VITC500 PO (09:35)
[2020-06-19] MEDS ORDERED: XAR10 PO (09:35)
[2020-06-19] MEDS ORDERED: DEXT5SYR3 PO (09:35)
[2020-06-19] MEDS ORDERED: ZINC220C28 PO (09:35)
[2020-06-19 11:59] VITALS: BP 131/69
[2020-06-19 13:10] VITALS: BP 131/69
[2020-06-19 15:34] VITALS: BP 126/63
--- NOTE | 2020-06-19 16:26 | NUR ---
TOLERATING ROOM AIR WITH O2 SAT OF 92-94%, NO SOB NOTED. DISCHARGE INSTRUCTIONS PROVIDE TO PATIENT, GREEK SPEAKING STAFF USE TO INTERPRET , VERBALIZED UNDERSTANDING. INFORMED THAT LAST DOSE OF ANTI VIRAL DUE AT 6 PM, CN BE GIVEN 5:30 THEN SHE CAN GO. OXYGEN ALREADY DELIVERED PER PATIENT, HAS THE PORTABLE. HAND OUTS ON COVID AND PRESCRIPTION MEDS IN GREEK LANGUAGE PROVIDED, INSTRUCTED PATIENT TO READ ABOUT COVID. MAINTAINED ON DROPLET PRECAUTION.
[2020-06-19] MEDS: REMDESIVIR (EUA) 100 MG in NACL 0.9% 100 ML IV SCH (17:16)
--- NOTE | 2020-06-19 18:38 | NUR ---
COMPLETED ANTI VIRAL. INSTRUCTED PATIENT TO GET DRESS AND CALL SPOUSE TO COME PICK HER UP.
== END 2020-06-19 18:55 | disposition home or self-care (01) | DRG 720 ==
LOC: MED 17:56 → MTU 21:36
PROVIDERS: ADMIT Internal Medicine; ATTEND Internal Medicine
PROC: XW033E5 Introduction of Remdesivir Anti-infective into Peripheral Vein, Percutaneous Approach, New Technology Group 5 (ICD-10-PCS; 2020-06-15)
PROC: XW13325 Transfusion of Convalescent Plasma (Nonautologous) into Peripheral Vein, Percutaneous Approach, New Technology Group 5 (ICD-10-PCS; principal; 2020-06-16)
DX: A41.9 Sepsis, unspecified organism (principal); U07.1 COVID-19; J96.01 Acute respiratory failure with hypoxia; E11.9 Type 2 diabetes mellitus without complications; J12.89 Other viral pneumonia
CPT/HCPCS: 36415; 71045; 80053; 81001; 82550; 82728; 82948; 83605; 83615; 83735; 83880; 84484; 85025; 85384; 85610; 85730; 86140; 86870; 86886; 86900; 86901; 87040; 87081; 87086; 87420; 87804; 93005; 96365; 96367; 99285; J0456; J0696; J1100; J1650; J7030; J7060; P9017; Q0092

== ENCOUNTER 2022-09-18 01:44 | Emergency (ER) | payer OTHER ==
[~2022-09-18] VITALS: Ht 157.5 cm; Wt 90.7 kg
[~2022-09-18 01:44] MED LIST: DEC4 PO; DEXT5SYR3 PO; VITC500 PO; XAR10 PO; ZINC220C28 PO
[2022-09-18 01:50] VITALS: BP 140/75
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
--- NOTE | 2022-09-18 04:00 | NUR ---
SEEN AND EXAMINED BY RUDOLPH
[2022-09-18] MEDS ORDERED: ACET-10509 PO (04:33)
[2022-09-18] MEDS ORDERED: DICL100G5 TP (04:33)
[2022-09-18 04:40] VITALS: BP 125/79
--- NOTE | 2022-09-18 04:40 | NUR ---
Patient discharged with v/s stable. Written and verbal after care instructions given and explained. Patient alert, oriented and verbalized understanding of instructions. Ambulatory with steady gait. All questions addressed prior to discharge. ID band removed. Patient advised to follow up with PMD. Rx of TYLENOL, DICLOFENAC given. Patient educated on indication of medication including possible reaction and side effects. Opportunity to ask questions provided and answered.
== END 2022-09-18 04:40 | disposition home or self-care (01) ==
LOC: MED 01:44
DX: S49.91XA Unspecified injury of right shoulder and upper arm, initial encounter (principal); E11.9 Type 2 diabetes mellitus without complications; Z79.899 Other long term (current) drug therapy; V89.2XXA Person injured in unspecified motor-vehicle accident, traffic, initial encounter; Y93.89 Activity, other specified; Y92.89 Other specified places as the place of occurrence of the external cause; Y99.8 Other external cause status
CPT/HCPCS: 73030; 99283

== ENCOUNTER 2022-12-28 06:49 | Day surgery (SDC) | payer OTHER ==
[~2022-12-28] VITALS: Ht 157.5 cm; Wt 86.2 kg
[~2022-12-28 06:49] MED LIST changes: +ACET-10509 PO; +DICL100G5 TP
[2022-12-28] MEDS ORDERED: diphenhydrAMINE 50 MG/ML VIAL ONE (07:54)
[2022-12-28] MEDS ORDERED: fentaNYL citrate 0.05 MG/ML VIAL ONE ×2 (07:55)
[2022-12-28] MEDS ORDERED: MIDAZOLAM 5 MG/5 ML VIAL ONE (07:55)
[2022-12-28] MEDS ORDERED: LIDOCAINE 2% 100 MG/5 ML UJET TP ONE (08:48)
[2022-12-28] MEDS ORDERED: MIDAZOLAM 2 MG/2 ML VIAL IVP ONE (14:55)
[2022-12-28] MEDS ORDERED: fentaNYL citrate 0.05 MG/ML VIAL IVP ONE (14:55)
== END 2022-12-28 10:34 | disposition home or self-care (01) ==
LOC: MMU 06:49 → MDS 06:49
PROVIDERS: ATTEND Internal Medicine Gastroenterology
DX: Z12.11 Encounter for screening for malignant neoplasm of colon (principal); K57.30 Diverticulosis of large intestine without perforation or abscess without bleeding; E11.9 Type 2 diabetes mellitus without complications; E66.9 Obesity, unspecified; Z20.822 Contact with and (suspected) exposure to COVID-19; Z79.899 Other long term (current) drug therapy; Z68.34 Body mass index [BMI] 34.0-34.9, adult
CPT/HCPCS: 45378; 87426; J2250; J3010; J1200

== ENCOUNTER 2023-07-24 11:49 | Emergency (ER) | payer OTHER ==
[~2023-07-24] VITALS: Ht 154.9 cm; Wt 83.9 kg
[2023-07-24] MEDS ORDERED: methylPREDNISolone SS 125 MG/2 ML VIAL ONE (11:54)
[2023-07-24 11:56] VITALS: BP 145/76; PULSE 70; RESP 18; TEMP 98; O2SAT 98
[2023-07-24 13:15] LABS: BASOPHILS # (AUTO) 0.1 K/uL (0.00-0.22); BASOPHILS % (AUTO) 0.6 % (0.0-2.0); EOSINOPHILS # (AUTO) 0.1 K/uL (0-0.4); EOSINOPHILS % (AUTO) 1.1 % (0.0-4.0); HEMATOCRIT 41.9 % (36-48); HEMOGLOBIN 14.3 g/dL (12.0-16.0); LYMPHOCYTES % (AUTO) 22.7 % (20.5-51.1); MEAN CORPUSCULAR HEMOGLOBIN 31 pg (27-31); MEAN CORPUSCULAR HGB CONC 34 g/dL (33-37); MEAN CORPUSCULAR VOLUME 92.2 fL (80-94); MONOCYTES # (AUTO) 0.6 K/uL (0.8-1.0); MONOCYTES % (AUTO) 7.1 % (1.7-9.3); NEUTROPHILS % (AUTO) 68.5 % (42.2-75.2); PLATELET COUNT (AUTO) 226 K/uL (140-450); RED BLOOD CELL COUNT(AUTO) 4.54 MIL/uL (4.20-5.40); RED CELL DISTRIBUTION WIDTH 13.1 % (11.6-13.7); WHITE BLOOD COUNT (AUTO) 8.8 K/uL (4.8-10.8)
[2023-07-24 13:31] LABS: BILIRUBIN,URINE NEGATIVE (NEGATIVE); BLOOD, URINE 2+ (NEGATIVE); COLOR,URINE YELLOW (YELLOW); LEUKOCYTE ESTERASE ,URINE 2+ (NEGATIVE); NITRITE, URINE NEGATIVE (NEGATIVE); PH,URINE 6.5 (5.0-9.0); PROTEIN,URINE NEGATIVE (NEGATIVE); UGLUCOSE 3+ (NEGATIVE); UROBILINOGEN,URINE 0.2 EU/dL (0.2 - 1)
[2023-07-24] MEDS ORDERED: PYR100 PO (13:41)
[2023-07-24] MEDS ORDERED: FLUC150T PO (13:41)
[2023-07-24] MEDS ORDERED: NITR100C7 PO (13:41)
[2023-07-24] MEDS ORDERED: ACET-10509 PO (13:41)
[2023-07-24 13:49] LABS: ALBUMIN 4.1 g/dL (3.4-5.0); ANION GAP 14.5 (8-16); CALCIUM 9.4 mg/dL (8.5-10.1); CARBON DIOXIDE 24.5 mmol/L (21-32); CREATININE 0.9 mg/dL (0.6-1.3); TOTAL BILIRUBIN 0.5 mg/dL (0.0-1.0); TOTAL PROTEIN, SERUM 7.6 g/dL (6.4-8.2)
[2023-07-24 13:56] VITALS: BP 130/65; PULSE 70; RESP 18; TEMP 98; O2SAT 98
[2023-07-24 14:05] LABS: APPEARANCE,URINE SLIGHTLY HAZY (CLEAR)
[2023-07-24 14:10] LABS: BACTERIA,URINE FEW /HPF (None Seen); SQUAMOUS EPITHELIAL CELL,UR 0-3 (FEW) /LPF (0-3 (FEW))
[2023-07-24 14:12] LABS: WBC,URINE 20-60 /HPF (0-5)
== END 2023-07-24 13:54 | disposition home or self-care (01) ==
LOC: MED 11:49
DX: N39.0 Urinary tract infection, site not specified (principal); R42 Dizziness and giddiness; N76.0 Acute vaginitis; E11.9 Type 2 diabetes mellitus without complications
CPT/HCPCS: 36415; 80053; 81001; 81025; 85025; 87086; 93005; 99284; J2930